=== PATIENT | female | born 1930 | race Caucasian/White ===

== ENCOUNTER 2017-06-15 12:39 | Day surgery (SDC) | payer OTHER ==
[2017-06-15] MEDS ORDERED: BUPIVACAINE HCL/PF 0.25% 10 ML VIAL INJ ONE ×2 (13:17→14:31)
[2017-06-15] MEDS ORDERED: ETOMIDATE 40 MG/20 ML VIAL IV ONE (14:09)
[2017-06-15] MEDS ORDERED: LIDOCAINE HCL 1% 20 ML VIAL SUBCUT PRN ×3 (14:13→14:16)
[2017-06-15] MEDS ORDERED: ACETAMINOPHEN 325 MG TABLET PO PRN ×2 (14:15→14:16)
[2017-06-15] MEDS ORDERED: FENTANYL 100 MCG/2 ML VIAL IV PRN (14:15)
[2017-06-15] MEDS ORDERED: HEMOSTATIC MATRIX 5 ML SYR MISC ONE ×2 (14:41→14:45)
[2017-06-15 14:47] VITALS: TEMP 97.3
[2017-06-15] MEDS: FENTANYL 100 MCG/2 ML VIAL IV PRN ×2 (14:52→15:06)
[2017-06-15 15:00] VITALS: RESP 14
[2017-06-15] MEDS ORDERED: LACTATED RINGERS 1,000 ML IV SCH ×5 (15:00)
[2017-06-15 15:26] VITALS: BP 167/72; PULSE 62; O2SAT 91
--- NOTE | 2017-06-15 16:13 | PROCEDURE NOTE: Gen Surgery ---
General Surgery Procedure Note - Date of Encounter Date of Encounter: 06/15/17 - Brief Operative Note (1) Open wound of lower leg Date of procedure: 06/15/17 Pre-Op Diagnosis: same Post-op diagnosis: same Procedure: 68327 Anesthesia Type: Mac Physician: AIM LAL Estimated Blood Loss: 100 Pathology: none sent X-ray taken: No Images viewed by surgeon: No Images viewed by radiologist: No Sponge and instrument counts: correct Condition: stable Disposition: same day Narrative: The patient was taken to the operating room. Her right leg was exposed. It was prepped with a Betadine solution. It was then sterilely draped. Timeout was called. Local in the form of quarter percent Marcaine without epinephrine was infiltrated. A total of 30 mL's was used. Next the skin was incised radially from the round wound. The underlying tissues were then debrided. There was separation of the subcutaneous tissue from the muscle layer more cephalad. There is no purulence noted at this area was not adherent as would be expected. The wound bled fairly briskly presumably secondary to the venous hypertension. This was controlled with suture ligatures, cautery and eventually FloSeal. The wound was then packed with alginate. An Cuong wrap was used. She tolerated this well. She was taken to PACU post op.
--- NOTE | 2017-06-18 14:07 | PREOPERATIVE H&P ---
History of Present Illness (Stone Chavez M.D.; 06/10/2017 10:58 AM) The patient is a 86 year old female here for wound assessment. Reason for encounter: wound check. The cause of the wound was trauma and venous stasis. Location: right leg (lateral malleolus). The wound has been present for 2 months. The course has been worsening. Current treatment regimen includes: wet to dry dressing changes. Results of current therapy: much worse. 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 Neurological Not Present- Neurological Problems (Following the last debridement she had a episode where she had a fall and did not have much memory of this. This was thought to have been a mild TIA. The ankle has progressively gotten worse since that time.). Physical Exam (Stone Chavez M.D.; 06/10/2017 11:07 AM) General Mental Status-Alert. General Appearance-Not Anxious. Integumentary Assessment of surgical incision: Location - Right Lower Extremity - Note: There is necrotic debris at the periphery of the wound. In the midportion is a fleshy area which I assume is covering the lateral malleolus. Chest and Lung Exam Chest and lung exam reveals -Clear. Cardiovascular Cardiovascular examination reveals -RRR, No murmurs present. Assessment & Plan (Stone Chavez M.D.; 06/10/2017 11:11 AM) Non-healing wound of lower extremity (S81.809A) Current Plans Debridement of Skin and Subcutaneous Tissue (04531) FIRST 20SQCM Non-Selective Debridement including Wet to Dry Dressings, Enzymatic, and Abrasive Cleaning (82382) Note:In the procedure room the right ankle was exposed. 4% topical was placed. I attempted to debride the necrotic material but she had too much pain. 4% Marcaine without epinephrine was then infiltrated. The skin was incised and she continued to have too much pain. I could not adequately debride this. We will plan to do this in the operating room next Wednesday where we can use IV sedation. Signed by Stone Chavez M.D. (06/10/2017 11:12 AM) FRANKIE
== END 2017-06-15 15:36 | disposition home or self-care (01) ==
LOC: SDS 12:39
PROVIDERS: ATTEND Surgery
DX: I83.891 Varicose veins of right lower extremity with other complications (principal); I27.2 Other secondary pulmonary hypertension; G20 Parkinson's disease; I05.9 Rheumatic mitral valve disease, unspecified; N28.9 Disorder of kidney and ureter, unspecified; I50.23 Acute on chronic systolic (congestive) heart failure; I50.32 Chronic diastolic (congestive) heart failure; G47.33 Obstructive sleep apnea (adult) (pediatric); R06.02 Shortness of breath
CPT/HCPCS: J3010